=== PATIENT | male | born 1985 | race Caucasian/White ===

== ENCOUNTER 2021-04-08 15:53 | Inpatient (IN) | payer OTHER ==
[2021-04-08 17:18] VITALS: BMI 24.9
[2021-04-08] MEDS ORDERED: BISMUTH SUBSALICYLATE 524 MG/30 ML PO PRN (19:21)
[2021-04-08] MEDS ORDERED: MAGNESIUM HYDROX 2400MG/30ML ORAL SUSPENSION 30 ML CUP PO PRN (19:21)
[2021-04-08] MEDS ORDERED: ACETAMINOPHEN 325 MG TABLET (FP) PO PRN ×2 (19:21)
[2021-04-08] MEDS ORDERED: MENTHOL/PHENOL 1 EACH UD MM PRN (19:21)
[2021-04-08] MEDS ORDERED: MAG HYDROX/AL HYDROX/SIMETH 30 ML UNIT-DOSE CUP PO PRN (19:21)
[2021-04-08] MEDS ORDERED: diazePAM 5 MG TABLET PO ONE (19:21)
[2021-04-08] MEDS ORDERED: ONDANSETRON *ODT* 4 MG TABLET SL PRN (19:21)
[2021-04-08] MEDS ORDERED: MAGNESIUM CITRATE 300 ML BOTTLE PO PRN (19:21)
[2021-04-08] MEDS ORDERED: IBUPROFEN 400 MG TABLET (FP) PO PRN (19:21)
[2021-04-08] MEDS: MELATONIN 5 MG TABLETS PO SCH (23:14)
[2021-04-08] MEDS: THIAMINE HCL 100 MG TABLET (FP) PO SCH (23:15)
[2021-04-08] MEDS: diazePAM 5 MG TABLET PO SCH (23:15)
[2021-04-08] MEDS: CEPHALEXIN MONOHYDRATE 500 MG CAPSULE (UD) PO SCH (23:20)
[2021-04-09] MEDS: CEPHALEXIN MONOHYDRATE 500 MG CAPSULE (UD) PO SCH ×3 (06:34→18:07)
[2021-04-09] MEDS: diazePAM 5 MG TABLET PO SCH ×4 (06:35→22:26)
[2021-04-09] MEDS: PANTOPRAZOLE 20 MG TABLET PO SCH (07:14)
[2021-04-09] MEDS ORDERED: methaDONE HCL 10 MG TABLET PO SCH (09:30)
[2021-04-09] MEDS ORDERED: methaDONE HCL 40 MG DISPERSABLE TABLET ONE (09:52)
[2021-04-09] MEDS ORDERED: methaDONE HCL 10 MG TABLET ONE (09:52)
[2021-04-09] MEDS: PRENATAL VITAMINS W/ FOLIC ACID TABLET (FP) PO SCH (10:48)
[2021-04-09] MEDS: hydrOXYzine PAMOATE 25 MG CAPSULE (FP) PO PRN (10:48)
[2021-04-09] MEDS: METHOCARBAMOL 500 MG TABLET PO PRN ×2 (10:49→22:26)
[2021-04-09] MEDS ORDERED: FLU VACC QS2021-22(6MOS UP)/PF 60 MCG/0.5 ML SYRINGE IM ONE (13:00)
[2021-04-09] MEDS: MELATONIN 5 MG TABLETS PO SCH (22:26)
[2021-04-09] MEDS: THIAMINE HCL 100 MG TABLET (FP) PO SCH (22:26)
[2021-04-10] MEDS: CEPHALEXIN MONOHYDRATE 500 MG CAPSULE (UD) PO SCH ×5 (02:06→23:12)
[2021-04-10] MEDS ORDERED: methaDONE HCL 10 MG TABLET ONE (04:46)
[2021-04-10] MEDS ORDERED: methaDONE HCL 40 MG DISPERSABLE TABLET ONE (04:47)
[2021-04-10] MEDS: diazePAM 5 MG TABLET PO SCH ×3 (05:34→22:30)
[2021-04-10] MEDS: NICOTINE 10 MG CARTRIDGE (INHALER) IH PRN ×2 (05:37→10:17)
[2021-04-10] MEDS: PANTOPRAZOLE 20 MG TABLET PO SCH (07:05)
[2021-04-10] MEDS: PRENATAL VITAMINS W/ FOLIC ACID TABLET (FP) PO SCH (10:14)
[2021-04-10] MEDS: diazePAM 5 MG TABLET PO PRN (10:15)
[2021-04-10 12:03] LABS: HEMATOCRIT 38.7 % (35.4-49); HEMOGLOBIN 12.9 GM/dL (11.7-16.9); MCH 26.4 pg (25.7-33.7); MCHC 33.3 g/dl (32.0-35.9); MEAN CELL VOLUME 79.4 fl (80-96); MEAN PLT VOLUME 7.9 fl (7.5-11.1); PLATELET COUNT 280 10^3/uL (134-434); RBC 4.88 M/mm3 (4.00-5.60); RDW 15.6 % (11.9-15.9); WHITE BLOOD COUNT 4.1 K/mm3 (4.0-10.0)
[2021-04-10 12:08] LABS: CALCIUM 8.5 mg/dL (8.5-10.1)
[2021-04-10 12:09] LABS: ALBUMIN 3.4 g/dl (3.4-5.0); BLOOD UREA NITROGEN 14.6 mg/dL (7-18)
[2021-04-10 12:12] LABS: CREATININE 0.9 mg/dL (0.55-1.3)
[2021-04-10 12:13] LABS: BILIRUBIN,TOTAL 0.9 mg/dL (0.2-1)
[2021-04-10 12:14] LABS: TOT PROT 6.9 g/dl (6.4-8.2)
[2021-04-10 13:01] LABS: HIV INTERPRETATION NEGATIVE (NEGATIVE)
[2021-04-10] MEDS: hydrOXYzine PAMOATE 25 MG CAPSULE (FP) PO PRN (13:37)
[2021-04-10] MEDS: cloNIDine HCL 0.1 MG TABLET PO PRN ×2 (13:38→22:33)
[2021-04-10] MEDS: MELATONIN 5 MG TABLETS PO SCH (22:31)
[2021-04-10] MEDS: THIAMINE HCL 100 MG TABLET (FP) PO SCH (22:31)
[2021-04-11] MEDS ORDERED: methaDONE HCL 10 MG TABLET ONE (04:14)
[2021-04-11] MEDS ORDERED: methaDONE HCL 40 MG DISPERSABLE TABLET ONE (04:14)
[2021-04-11] MEDS: CEPHALEXIN MONOHYDRATE 500 MG CAPSULE (UD) PO SCH ×4 (05:36→23:00)
[2021-04-11] MEDS: diazePAM 5 MG TABLET PO SCH ×2 (05:36→17:46)
[2021-04-11] MEDS: cloNIDine HCL 0.1 MG TABLET PO PRN ×2 (05:38→15:29)
[2021-04-11] MEDS: NICOTINE 10 MG CARTRIDGE (INHALER) IH PRN ×2 (05:41→10:09)
[2021-04-11] MEDS: PANTOPRAZOLE 20 MG TABLET PO SCH (07:21)
[2021-04-11] MEDS: PRENATAL VITAMINS W/ FOLIC ACID TABLET (FP) PO SCH (10:05)
[2021-04-11] MEDS: METHOCARBAMOL 500 MG TABLET PO PRN ×2 (10:07→22:10)
[2021-04-11] MEDS: hydrOXYzine PAMOATE 25 MG CAPSULE (FP) PO PRN (10:07)
[2021-04-11] MEDS: diazePAM 5 MG TABLET PO PRN ×2 (10:07→15:28)
[2021-04-11] MEDS: THIAMINE HCL 100 MG TABLET (FP) PO SCH (22:09)
[2021-04-11] MEDS: MELATONIN 5 MG TABLETS PO SCH (22:09)
[2021-04-12] MEDS ORDERED: methaDONE HCL 10 MG TABLET ONE (04:18)
[2021-04-12] MEDS ORDERED: methaDONE HCL 40 MG DISPERSABLE TABLET ONE (04:19)
[2021-04-12] MEDS: hydrOXYzine PAMOATE 25 MG CAPSULE (FP) PO PRN (05:06)
[2021-04-12] MEDS: CEPHALEXIN MONOHYDRATE 500 MG CAPSULE (UD) PO SCH (05:06)
[2021-04-12] MEDS ORDERED: diazePAM 5 MG TABLET PO ONE (06:00)
[2021-04-12] MEDS: PANTOPRAZOLE 20 MG TABLET PO SCH (06:03)
[2021-04-12] MEDS: cloNIDine HCL 0.1 MG TABLET PO PRN ×2 (06:10→10:38)
[2021-04-12 09:13] VITALS: TEMP 96.8
[2021-04-12] MEDS: PRENATAL VITAMINS W/ FOLIC ACID TABLET (FP) PO SCH (10:37)
[2021-04-12 10:43] VITALS: BP 108/71; PULSE 73
== END 2021-04-12 11:00 | disposition home or self-care (01) | DRG 773 ==
LOC: YASAS 15:53 → Y3N 21:12
PROVIDERS: ADMIT Allergy & Immunology; ATTEND Allergy & Immunology
PROC: HZ2ZZZZ Detoxification Services for Substance Abuse Treatment (ICD-10-PCS; principal; 2021-04-08)
DX: F10.230 Alcohol dependence with withdrawal, uncomplicated (principal); F11.20 Opioid dependence, uncomplicated; F14.20 Cocaine dependence, uncomplicated; F17.210 Nicotine dependence, cigarettes, uncomplicated; F19.24 Other psychoactive substance dependence with psychoactive substance-induced mood disorder; I83.93 Asymptomatic varicose veins of bilateral lower extremities; L03.113 Cellulitis of right upper limb; K21.9 Gastro-esophageal reflux disease without esophagitis; M54.50 Low back pain, unspecified; G89.29 Other chronic pain; R73.9 Hyperglycemia, unspecified; Z86.69 Personal history of other diseases of the nervous system and sense organs; Z91.013 Allergy to seafood
CPT/HCPCS: 36415; 80053; 82947; 85027; 86780; 87389; 90686; 93005; 93010; C9803; G0008; J0735; U0003; U0005

== ENCOUNTER 2024-11-08 12:42 | Inpatient (IN) | payer OTHER ==
[2024-11-08 13:09] VITALS: BMI 26.0
[2024-11-08] MEDS ORDERED: IBUPROFEN 600 MG TABLET (FP) PO PRN (13:46)
[2024-11-08] MEDS ORDERED: IBUPROFEN 400 MG TABLET (FP) PO PRN (13:46)
[2024-11-08] MEDS ORDERED: MAGNESIUM HYDROX 2400MG/30ML ORAL SUSPENSION 30 ML CUP PO PRN (13:46)
[2024-11-08] MEDS ORDERED: ONDANSETRON *ODT* 4 MG TABLET SL PRN (13:46)
[2024-11-08] MEDS ORDERED: MAG HYDROX/AL HYDROX/SIMETH 30 ML UNIT-DOSE CUP PO PRN (13:46)
[2024-11-08] MEDS ORDERED: ACETAMINOPHEN 325 MG TABLET (FP) PO PRN (13:46)
[2024-11-08] MEDS ORDERED: BENZONATATE 200 MG CAPSULE PO PRN (13:46)
[2024-11-08] MEDS ORDERED: DICYCLOMINE HCL 10 MG CAPSULE PO PRN (13:46)
[2024-11-08] MEDS ORDERED: LOPERAMIDE HCL 2 MG CAPSULE PO PRN (13:46)
[2024-11-08] MEDS ORDERED: NALOXONE (NARCAN) HCL 4 MG/0.1 ML SPRAY NS PRN (13:46)
[2024-11-08] MEDS ORDERED: POLYETHYLENE GLYCOL (HEALTHYLAX) 3350 17 GM PACKET PO PRN (13:46)
[2024-11-08] MEDS ORDERED: NICOTINE POLACRILEX 2 MG LOZENGE BC PRN (13:46)
[2024-11-08] MEDS ORDERED: guaiFENesin 600 MG TABLET.ER (FP) PO PRN (13:46)
[2024-11-08] MEDS ORDERED: BENZOCAINE/MENTHOL (CHLORASEPTIC ) LOZENGE MM PRN (13:46)
[2024-11-08] MEDS ORDERED: NICOTINE POLACRILEX 2 MG GUM BUC PRN (13:46)
[2024-11-08] MEDS ORDERED: BISMUTH SUBSALICYLATE 524 MG/30 ML PO PRN (13:46)
[2024-11-08] MEDS ORDERED: levETIRAcetam 500 MG TABLET (FP) PO ONE (14:47)
[2024-11-08] MEDS: levETIRAcetam 500 MG TABLET (FP) PO SCH (14:49)
[2024-11-08] MEDS ORDERED: ALBUTEROL SO4 HFA INHALER IH PRN (14:54)
[2024-11-08 20:55] VITALS: BP 116/78; PULSE 58; RESP 17; TEMP 97.7
[2024-11-08] MEDS: THIAMINE 100 MG TABLET PO SCH (22:58)
[2024-11-08] MEDS: MELATONIN 5 MG TABLETS PO SCH (22:58)
[2024-11-08] MEDS: hydrOXYzine PAMOATE 25 MG CAPSULE (FP) PO PRN (22:58)
[2024-11-08] MEDS: METHOCARBAMOL 500 MG TABLET PO PRN (22:58)
[2024-11-09] MEDS: PRENATAL VITAMINS W/ FOLIC ACID TABLET (FP) PO SCH (10:08)
[2024-11-09] MEDS ORDERED: QUEtiapine FUMARATE 100 MG TABLET (FP) PO SCH (22:00)
== END 2024-11-09 12:04 | disposition left against medical advice (07) | DRG 773 ==
LOC: YASAS 12:42 → Y6N 14:47
PROVIDERS: ADMIT Allergy & Immunology; ATTEND Allergy & Immunology
PROC: HZ2ZZZZ Detoxification Services for Substance Abuse Treatment (ICD-10-PCS; principal; 2024-11-08)
DX: F11.23 Opioid dependence with withdrawal (principal); F10.230 Alcohol dependence with withdrawal, uncomplicated; F14.20 Cocaine dependence, uncomplicated; F17.210 Nicotine dependence, cigarettes, uncomplicated; F41.8 Other specified anxiety disorders; Z91.199 Patient's noncompliance with other medical treatment and regimen due to unspecified reason
CPT/HCPCS: 93005; 93010